=== PATIENT | female | born 1975 | race Caucasian/White ===

== ENCOUNTER 2016-12-08 14:36 | Outpatient (CLI) | payer OTHER ==
--- NOTE | 2016-12-08 18:48 | Diagnostic Imaging Report ---
CHRISTINA PAREDES - MERIS[facility] [address] [facility] [address] [address] Report Submission Date: Dec 08, 2016 3:30:37 PM CDT Patient Study Name: JENNIFER YO Date: Dec 08, 2016 2:59:34 PM CDT Modality Type: US Gender: F Description: UNILAT LTD STDY EXT VEINS : 79 Institution: [facility] Physician: CHRISTINA PAREDES Examination: Ultrasound vein History: Leg injury Findings: Sonographic evaluation of the left lower extremity venous system from the groin to the popliteal fossa inclusive. Normal compressibility. No luminal filling defect. Normal waveforms and response to augmentation. No popliteal region fluid collection. Luminal filling defect within the greater saphenous vein beginning at the proximal medial thigh extending to the lateral thigh region. Impression: No evidence for deep venous thrombosis. Within the area of patient's reported injury is a superficial thrombus within the greater saphenous vein beginning at the proximal medial thigh extending to the lateral thigh region. Electronically signed on Dec 08, 2016 3:30:37 PM CDT by: Sb WOLFE
== END 2016-12-08 14:37 ==
LOC: RAD 14:36
PROVIDERS: ATTEND Family Medicine
DX: M79.604 Pain in right leg (principal)
CPT/HCPCS: 93971

== ENCOUNTER 2018-05-01 10:33 | Emergency (ER) | payer OTHER ==
[2018-05-01] MEDS ORDERED: MORPHINE SULFATE 5 MG/ML ML IM ONE (10:57)
[2018-05-01] MEDS ORDERED: KETOROLAC TROMETHAMINE 60 MG/2 ML VIAL IM ONE (10:57)
--- NOTE | 2018-05-01 11:08 | ED Physician Documentation ---
Fall - HISTORIAN Historian: patient - HPI Stated Complaint: fall ankle pain Chief Complaint: Fall Onset: just prior to arrival Context: tripped, slipped Associated Symptoms:: no loss of consciousness Location of Pain/Injury: lower extremity Injury to Right Extremity: none Injury to Left Extremity: ankle Further Comments: yes (42 year old female patient presents with complaint of left ankle pain, after slipping on the ice. Rates pain 12/28.) - ROS CONST: no problems - PAST HX Past History: other (HTN, depression) Allergies/Adverse Reactions: Allergies Allergy/AdvReac Type Severity Reaction Status Date / Time Penicillins Allergy Hives Verified 05/01/18 11:02 sulfamethoxazole Allergy Hives Verified 05/01/18 11:02 [From Bactrim] trimethoprim [From Bactrim] Allergy Hives Verified 05/01/18 11:02 Home Medications: Ambulatory Orders Medication Instructions Recorded Escitalopram Oxalate [Lexapro] 10 mg PO HS 05/01/18 Metoprolol Tartrate 100 mg PO HS 05/01/18 - SOCIAL HX Smoking History: non-smoker Alcohol Use: none - FAMILY HX Family History: denies: none - VITAL SIGNS Vital Signs: Vital Signs Temp Pulse Resp BP Pulse Ox 98 F 101 H 22 188/93 99 05/01/18 10:33 05/01/18 10:33 05/01/18 10:33 05/01/18 10:33 05/01/18 10:33 - REVIEWED ASSESSMENTS Nursing Assessment Reviewed: Yes Vitals Reviewed: Yes Progress - Progress Progress: Patient medicated for pain with morphine and toradol while in the ER. Placed in walking boot - extensive instruction on "NO" weight bearing. Patient verbalized understanding. Does not want cast and crutches. "afraid I will fall again". Reviewed discharge instructions, questions answered. ED Results Lab/Radiology - Radiology Radiology Impressions: Examination: Plain film left ankle History: Ankle discomfort. Injury Findings: 3 views of the left ankle demonstrates avulsion of the medial malleolus. No other fracture or dislocation. Talar dome is intact. Calcaneal spurs. Soft tissue swelling. No joint effusion. Impression: Medial malleolar fracture. Soft tissue swelling. Electronically signed on May 01, 2018 12:07:03 PM STRAP FOLDING MACHINE OPERATOR by: Sb Carrasco Examination: Plain film left tibia/fibula History: LEFT LOWER LEG AND ANKLE PAIN POST FALL ON ICE TODAY. NO PREVIOUS INJURY OR SURGERY ON LOWER LEG. PATIENT DENIED CHANCE OF AND WAS SHIELDED FOR EXAM IN ED Comparison exams: None available Findings: 2 views of the left tibia fibula demonstrates normal cortical margins. No evidence for fracture line. No soft tissue abnormality. Impression: No acute osseous abnormality. Electronically signed on May 01, 2018 11:55:04 AM STRAP FOLDING MACHINE OPERATOR by: Sb Carrasco - Orders Orders: ED Orders Category Date Time Status ANKLE 3 VIEWS OR MORE [RAD] Stat Exams 05/01/18 Taken TIBIA & FIBULA 2 VIEW [RAD] Stat Exams 05/01/18 Taken Ketorolac Tromethamine [Toradol] Med 05/01/18 10:57 Discontinued 60 mg IM NOW ONE Morphine Sulfate Med 05/01/18 10:57 Discontinued 5 mg IM NOW ONE Fall Physical Exam - Physical Exam General Appearance: moderate distress Eye: ISABEL Resp/CVS: chest non-tender, no ecchymosis, breath sounds nml, no resp. distress, heart sounds nml Abdomen: soft, no organomegaly, normal bowel sounds, no abdominal bruit, no distension Neuro: oriented x3, CN's nml as tested, sensation nml, motor nml, mood/affect nml, doughmaker nml, reflexes nml, doughmaker symmetrical Extremities: atraumatic, pelvis stable, hips non-tender, no pedal edema, nml color/temp, painful weight bearing (left ankle), unable to bear weight (left ankle) Discharge Clincal Impression: Medial malleolar fracture Qualifiers: Encounter type: initial encounter Fracture type: closed Fracture alignment: displaced Laterality: left Qualified Code(s): S82.52XA - Displaced fracture of medial malleolus of left tibia, initial encounter for closed fracture Additional Instructions: Use your crutches at all times. Wear the boot at all times. No weight bearing. Rest Ice Elevation - above the level of the heart. Call orthopedics for a follow up appointment in the next 2-3 days. Take your disc and report to the appointment. You may remove the boot to shower, do not place weight on the left ankle. Return to the ER right away if: You cannot wiggle the toes The toes are pale or blue Condition: Stable Disposition: 01 HOME, SELF-CARE Decision to Admit: NO Decision Time: 11:31
[2018-05-01] MEDS ORDERED: MORPHINE SULFATE 10 MG/ML VIAL ONE (11:22)
--- NOTE | 2018-05-01 11:56 | Diagnostic Imaging Report ---
MILA GREGORIO (FOREST MANAGEMENT PROFESSOR) - ER [facility] [address] [facility].[address] [address] Report Submission Date: May 01, 2018 11:55:04 AM REPRODUCTIVE SURGEON Patient Study Name: JENNIFER YO Date: May 01, 2018 10:51:19 AM REPRODUCTIVE SURGEON Modality Type: DX Gender: F Description: TIBIA & FIBULA 2 VIEW : 79 Institution: [facility] Physician: MILA GREGORIO (KHRIS) - ER Examination: Plain film left tibia/fibula History: LEFT LOWER LEG AND ANKLE PAIN POST FALL ON ICE TODAY. NO PREVIOUS INJURY OR SURGERY ON LOWER LEG. PATIENT DENIED CHANCE OF AND WAS SHIELDED FOR EXAM IN ED Comparison exams: None available Findings: 2 views of the left tibia fibula demonstrates normal cortical margins. No evidence for fracture line. No soft tissue abnormality. Impression: No acute osseous abnormality. Electronically signed on May 01, 2018 11:55:04 AM REPRODUCTIVE SURGEON by: Sb WOLFE
[2018-05-01 12:08] VITALS: BP 151/81
--- NOTE | 2018-05-01 13:45 | Diagnostic Imaging Report ---
MILA GREGORIO (NEEDLE MOLDER) - ER [facility] [address] [address] Report Submission Date: May 01, 2018 12:07:03 PM WAREHOUSE RECEIVING SUPERVISOR Patient Study Name: JENNIFER YO Date: May 01, 2018 10:51:10 AM WAREHOUSE RECEIVING SUPERVISOR Modality Type: DX Gender: F Description: ANKLE 3 VIEWS OR MORE : 79 Institution: [facility] Physician: MILA GREGORIO (KHRIS) - ER Examination: Plain film left ankle History: Ankle discomfort. Injury Findings: 3 views of the left ankle demonstrates avulsion of the medial malleolus. No other fracture or dislocation. Talar dome is intact. Calcaneal spurs. Soft tissue swelling. No joint effusion. Impression: Medial malleolar fracture. Soft tissue swelling. Electronically signed on May 01, 2018 12:07:03 PM WAREHOUSE RECEIVING SUPERVISOR by: Sb WOLFE
== END 2018-05-01 12:04 | disposition home or self-care (01) ==
LOC: ED 10:33
DX: S82.52XA Displaced fracture of medial malleolus of left tibia, initial encounter for closed fracture (principal); W00.9XXA Unspecified fall due to ice and snow, initial encounter; Y93.9 Activity, unspecified; Y92.9 Unspecified place or not applicable
CPT/HCPCS: 29515; 73590; 73610; 96372; 99283; 99284; J1885